=== PATIENT | male | born 1990 ===

== ENCOUNTER 2017-10-28 18:10 | Emergency (ER) | payer MEDICAID ==
[2017-10-28 19:04] VITALS: BP 129/77; PULSE 92; RESP 20; TEMP 98.5; O2SAT 98
[2017-10-28] MEDS ORDERED: Bacitracin 500 Units/gm Oint Foilpak UD TOP ONE (19:34)
[2017-10-28] MEDS ORDERED: Tetanus/Diphtheria Toxoids 0.5 ml Syringe IM ONE (19:35)
[2017-10-28] MEDS ORDERED: Bacitracin 500 Units/gm Oint Foilpak UD ONE (19:42)
[2017-10-28] MEDS ORDERED: Tdap Vaccine 0.5 ml Vial (10-64 yrs) IM ONE (19:43)
--- NOTE | 2017-10-28 19:43 | C.PDOC ---
History Of Present Illness Patient reports cutting metal adolfo for shower curtain and the device slipped and cut his hand left 2nd knuckle. Patient reports no limitation of hand movement or numbness. Time Seen by Provider: 10/28/17 19:29 Chief Complaint (Nursing): Abnormal Skin Integrity History Per: Patient History/Exam Limitations: no limitations Onset/Duration Of Symptoms: Sudden Onset Location Of Injury: Left: Hand Quality Of Symptoms: Painful Severity: Mild Past Medical History Reviewed: Historical Data, Nursing Documentation, Vital Signs Vital Signs: Last Vital Signs Temp 98.5 F 10/28/17 19:03 Pulse 92 H 10/28/17 19:03 Resp 20 10/28/17 19:03 BP 129/77 10/28/17 19:03 Pulse Ox 98 10/28/17 19:03 - Medical History PMH: No Chronic Diseases Family History: States: Unknown Family Hx - Social History Hx Alcohol Use: No Hx Substance Use: No - Immunization History Hx Tetanus Toxoid Vaccination: No Hx Influenza Vaccination: No Physical Exam - Physical Exam Appears: Non-toxic, No Acute Distress Skin: Other (irregular abrasions to dorsal aspect of left hand across 2nd and 3rd MCP, no laceration or active bleeding. ) Head: Atraumatic, Normacephalic Eye(s): bilateral: Normal Inspection Neck: Normal ROM Extremity: Normal ROM, No Tenderness, Capillary Refill (<2 seconds), No Deformity, No Swelling Pulses: Left Radial: Normal Neurological/Psych: Oriented x3, Normal Speech ED Course And Treatment O2 Sat by Pulse Oximetry: 98 Medical Decision Making Medical Decision Making: Wound cleansed and irrigated with NS. No deep structure involvement or laceration that needs repair. Bacitracin and dressing applied. Tetanus was administered Disposition Counseled Patient/Family Regarding: Diagnosis, Need For Followup - Disposition Disposition: HOME/ ROUTINE Disposition Time: 19:44 Condition: GOOD Additional Instructions: Keep area clean and dry. May wash gently with soap and water, do not use alcohol or iodine solution. Change dressing 1-2 times daily. Return to ER if fever occurs, redness or swelling around wound, pus in the wound. Instructions: Skin Abrasions Forms: Beacon Reader (Ethiopian), Beacon Reader (Belarusian) Print Language: ROMANIAN - POA Present On Arrival: None - Clinical Impression Clinical Impression: Abrasion
== END 2017-10-28 20:19 | disposition home or self-care (01) ==
LOC: C.ER 18:10
DX: S60.512A Abrasion of left hand, initial encounter (principal); W45.8XXA Other foreign body or object entering through skin, initial encounter; Z23 Encounter for immunization